=== PATIENT | male | born 1945 | race Asian ===

== ENCOUNTER 2017-07-12 09:27 | Outpatient (CLI) | payer MEDICARE ==
[~2017-07-12] VITALS: Ht 165.1 cm; Wt 70.5 kg
[2017-07-12 09:44] VITALS: BP 129/71
[2017-07-12] MEDS ORDERED: METF500T4 PO (10:10)
[2017-07-12] MEDS ORDERED: SIMV20TA3 PO (10:10)
[2017-07-14] MEDS ORDERED: HYDR-3812 PO (09:17)
== END 2017-07-12 10:33 | disposition home or self-care (01) ==
LOC: PREOP 09:27
PROVIDERS: ATTEND Surgery
DX: Z01.818 Encounter for other preprocedural examination (principal); Z11.2 Encounter for screening for other bacterial diseases; K40.90 Unilateral inguinal hernia, without obstruction or gangrene, not specified as recurrent
CPT/HCPCS: 87081

== ENCOUNTER 2017-07-14 06:00 | Day surgery (SDC) | payer MEDICARE ==
[~2017-07-14] VITALS: Ht 165.1 cm; Wt 70.5 kg
[~2017-07-14 06:00] MED LIST: METF500T4 PO; SIMV20TA3 PO
[2017-07-14] MEDS ORDERED: proPOfol 200 MG/20 ML (DIPRIVAN) VIAL IV ONE (06:16)
[2017-07-14] MEDS ORDERED: SEVOFLURANE (ULTANE) 15 ML INHAL SOLN ONE ×5 (06:16→08:59)
[2017-07-14] MEDS ORDERED: ONDANSETRON 4 MG/2 ML (SDV) Z0FRAN ONE (06:16)
[2017-07-14] MEDS ORDERED: LIDOCAINE PF 2% 5 ML (XYLOCAINE) VIAL ONE (06:16)
[2017-07-14] MEDS ORDERED: MIDAZOLAM 2 MG/2 ML (VERSED) VIAL ONE (06:17)
[2017-07-14] MEDS ORDERED: fentaNYL INJECTION 100 MCG/2 ML AMP ONE (06:17)
[2017-07-14 06:20] VITALS: BP 144/74
[2017-07-14] MEDS ORDERED: ceFAZolin 2 GM/50 ML NS 50 ML ONE (06:36)
[2017-07-14] MEDS ORDERED: LIDOCAINE/EPI 1%-1:200,000 (XYLOCAINE) 10 ML VIAL ONE (07:12)
[2017-07-14] MEDS ORDERED: ceFAZolin 2 GM/NS 50 ML IV ONE (07:15)
[2017-07-14] MEDS: LACTATED RINGERS 1,000 ML IV PRN ×2 (07:22→08:30)
[2017-07-14] MEDS ORDERED: ROCURONIUM 50 MG/5 ML (ZEMURON) VIAL IV ONE (07:36)
--- NOTE | 2017-07-14 08:06 | Progress Note-Pre Operative ---
Pre-Operative Progress Note H&P Reviewed The H&P was reviewed, patient examined and no changes noted. Time Seen by Provider: 08:00 Date H&P Reviewed: Jul 14, 2017 Time H&P Reviewed: 08:00 Pre-Operative Diagnosis: incarcerated right inguinal hernia SHERIDAN ADAIR DO Jul 14, 2017 08:06
[2017-07-14] MEDS ORDERED: GLYCOPYRROLATE 0.2 MG/ML (ROBINUL) 2 ML VIAL ONE (09:02)
[2017-07-14] MEDS ORDERED: NEOSTIGMINE (BLOXIVERZ ) 1 MG/1ML 10 ML VIAL ONE (09:02)
--- NOTE | 2017-07-14 09:16 | Progress Note-Post Operative ---
Post-Operative Progess Note Surgeon (s)/Inspector Scales (s) Surgeon SHERIDAN ADAIR DO Inspector Scales: MS III Lazaro Pre-Operative Diagnosis incarcerated right inguinal hernia Post-Operative Diagnosis Same - Indirect Procedure & Operative Findings Date of Procedure 07/14/17 Procedure Performed/Findings RIH with mesh Anesthesia Type LMA Estimated Blood Loss Estimated blood loss (mL): scant Specimens/Packing Specimens Removed hernia sac SHERIDAN ADAIR DO Jul 14, 2017 09:16
[2017-07-14] MEDS ORDERED: HYDR-3812 PO (09:17)
--- NOTE | 2017-07-14 09:19 | Discharge Inst-Surgical ---
Discharge Inst-Surgical Depart Medication/Instructions New, Converted or Re-Newed RX: RX Given to Pt/Family Patient Instructions Follow up Appt: Make appointment for 1 week. Instructions: No lifting greater than 10 pounds. No strenuous activity. May shower in 24 hours, no tub bath or soaking. Use incentive spirometer at home as directed. No Smoking Skin/Wound Care: May remove bandages in am 10/12. You need to leave the Dermabond on over incision; it will fall off on its own. Symptoms to Report: Appetite Changes, Extremity Discoloration, Numbness/Tingling, Swelling Increased , Bleeding Excessive, Eyesight Changes, Pain Increased, Urine Color Change, Constipation(Persistent), Fever over 101 degree F, Pain/Pressure in chest, Urinating Difficulty, Cough Up/Vomit Blood, Heart Beat Irreg/Pounding, Pain/ Pressure in jaw, Vaginal Bleeding Increase, Cramps in feet or legs, Lightheadedness, Pain/Pressure in shoulder, Diarrhea(Persistent), Memory Changes Suddenly, Questions/Concerns, Weight gain consecutive days, Dizziness/ Fainting, Nausea/Vomiting, Shortness of Breath, Weight gain over 2 pounds If questions or concerns contact your physician Or seek help at emergency department. Activity Activity as Tolerated: Yes Activity Instructions: Avoid Pulling & Pushing, Avoid Stress to Incision Driving Instructions: No Driving/Refer to Dr. Elkins Discharge Diet: No Restrictions Diet After 24 Hours: Clear Liquid if Nauseous If Any Problems/Questions/Issu: Contact Your Physician, Go to Emergency Room Skin/Wound Care Infection Signs and Symptoms: Increased Redness, Foul Odor of Wound, Increased Drainage, Skin Itchy or Has a Rash, Increased Swelling, Temperature Above 101 F Bathing Instructions: Shower Operative Area Clean and Dry: Keep Incision Clean/Dry Stitches/Faheem/Dermabond Dis: Dermabond Ice Pack: Ice On and Off Site SHERIDAN ADAIR DO Jul 14, 2017 09:19
[2017-07-14 10:20] VITALS: BP 144/71
[2017-07-14 10:50] VITALS: BP 135/69
[2017-07-14 11:20] VITALS: BP 151/77
--- NOTE | 2017-07-14 19:32 | OPERATIVE REPORT ---
DATE OF SERVICE: 07/14/2017 PREOPERATIVE DIAGNOSES: Right incarcerated inguinal hernia. POSTOPERATIVE DIAGNOSES: Right incarcerated inguinal hernia with an indirect hernia. PROCEDURE: Right inguinal herniorrhaphy with mesh placement. SURGEON: Dr. Jiang. MAKE READY WORKER: Medical student . ANESTHESIA: LMA by the CASE RESOURCE MANAGER with local injected by myself. SPECIMEN: Hernia sac. BLOOD LOSS: Scant. FLUIDS: Per anesthesia. POSTOPERATIVE CONDITION: Stable. INDICATION FOR PROCEDURE: The patient is a 71-year-old male who started complaining of right inguinal pain, bulging, and diagnosed with an incarcerated right inguinal hernia. FINDINGS: The patient had an incarcerated right inguinal hernia. There was omentum stuck in the hernia sac. It was an indirect hernia. PROCEDURE NOTE: After informed consent was obtained, the patient was brought to the operating room, placed on table in supine position. He was sterilely prepped and draped in normal fashion. Local lidocaine used for performing an ilioinguinal nerve block as well as pubic tubercle block to infiltrate the right inguinal region with local. I then made an incision with #15 blade, carried down through skin and subcutaneous tissue, then deepened down to subcutaneous tissue with Bovie electrocautery down through the tissue to the external oblique fascia, infiltrated external oblique fascia with local and then incised through the external inguinal ring with Bovie electrocautery. I then passed the hemostat, dissected under the external oblique fascia bluntly, able to create a pocket and then getting under the cord and cord structures at the pubic tubercle, placed a [place] drain, put in the inferolateral direction and started looking superiorly and medially on the cord structures and found the hernia sac. I had actually went down the cord pretty deep, able to carefully pull this back up off of the cord, opened it up and noted some omentum and possibly a little portion of bowel attached into the hernia sac, carefully were able to remove this gently with Bovie electrocautery as well as with blunt dissection. Pushed this back up into the abdomen and then able to ligate the hernia sac with 2-0 Vicryl, did a suture ligation and then another 2-0 Vicryl tie and then cut off the remainder of the hernia sac and watched it retract up in the abdomen. At this point, I then elected to place a right-sided Parietex mesh, trimmed it to fit into the inguinal canal, sutured once to the pubic tubercle, placed the rest of the mesh up under the external oblique fascia and surrounding the cord with a precut hole thereby recreating the internal inguinal ring. Copiously irrigated with normal saline, suctioned this out and everything looked good. There was no bleeding and then closed the external oblique fascia with 3-0 Vicryl, thereby recreating the external inguinal ring. Closed Gorge's fascia with 3-0 Vicryl, 2 interrupted sutures and then closed the skin with 4-0 undyed Monocryl in running subcuticular fashion. Area was cleaned and dried and Dermabond placed as well as a bandage and then patient was transferred to recovery room in stable condition. Sponge, instrument and needle count correct at the end of the case. Job ID: [id number] DocumentID: [id number] Dictated Date: 07/14/2017 10:32:13 Vending Machine Operator Date: 07/14/2017 19:31:38 Dictated By: SHERIDAN JIANG DO
== END 2017-07-14 11:35 | disposition home or self-care (01) ==
LOC: SDC 06:00
PROVIDERS: ATTEND Surgery
DX: K40.30 Unilateral inguinal hernia, with obstruction, without gangrene, not specified as recurrent (principal); E11.9 Type 2 diabetes mellitus without complications; Z79.84 Long term (current) use of oral hypoglycemic drugs
CPT/HCPCS: 82962; 94664